=== PATIENT | female | born 1955 | race Caucasian/White ===

== ENCOUNTER 2017-05-10 13:57 | Emergency (ER) | payer BC ==
--- NOTE | 2017-05-10 14:05 | EDM.PDOC ---
ED HPI GENERAL MEDICAL PROBLEM - General Chief Complaint: Neck Problem Stated Complaint: NECK PAIN Time Seen by Provider: 05/10/17 14:15 Source of Information: Reports: Patient History Limitations: Reports: No Limitations - History of Present Illness INITIAL COMMENTS - FREE TEXT/NARRATIVE: 61-year-old female presents to the ED for evaluation of significant cervical neck pain 6 months much worse the last week. She's been seen by various chiropractors over 40 times in total. She gets transient temporary relief. Currently seeing a massage therapist again with very minimal relief. Pain is constant and aggravated by certain movements of the head and neck. Recently she is getting pain rating from the base of her scalp on the right side up to the frontal cortex aggravation of the occipitofrontal nerve. No associated nausea vomiting. No recent falls or trauma. No problems with her neck up until 6 months ago. Onset: Gradual (Over the last 6 months just much worse the last week.) Duration: Week(s):, Chronic Location: Reports: Neck (Right side greater than the left.) Quality: Reports: Ache, Burning, Dull Severity: Moderate (Rates it as 6 or 7 out of 10.) Improves with: Reports: None Worsens with: Reports: Movement Context: Denies: Activity, Exercise (Certain movements), Lifting, Sick Contact, Trauma, Other Associated Symptoms: Denies: No Other Symptoms, Confusion, Chest Pain, Cough, cough w sputum, Diaphoresis, Fever/Chills, Headaches, Loss of Appetite, Malaise , Nausea/Vomiting, Rash, Seizure, Shortness of Breath, Syncope, Weakness Neck Pain Score (Numeric/FACES): 4 - Related Data Allergies Allergy/AdvReac Type Severity Reaction Status Date / Time promethazine [From Phenergan] Allergy Hallucinati Verified 05/10/17 14:20 ons Home Meds: Home Meds Meloxicam 15 mg PO DAILY #14 tablet 05/10/17 [Rx] predniSONE [Deltasone] 20 mg PO ASDIRECTED #18 tablet 05/10/17 [Rx] Social & Family History - Living Situation & Occupation Living situation: Reports: Occupation: Employed ED ROS GENERAL - Review of Systems Review Of Systems: See Below Constitutional: Reports: Fatigue (From not sleeping very well due to neck pain) . Denies: Fever, Chills, Malaise, Weakness HEENT: Reports: No Symptoms Respiratory: Reports: No Symptoms Cardiovascular: Reports: No Symptoms Endocrine: Reports: No Symptoms GI/Abdominal: Reports: No Symptoms : Reports: No Symptoms Musculoskeletal: Reports: Neck Pain. Denies: Shoulder Pain, Arm Pain, Back Pain Skin: Reports: No Symptoms Neurological: Reports: No Symptoms Psychiatric: Reports: No Symptoms ED EXAM, UPPER BACK/NECK PAIN - Physical Exam Exam: See Below Exam Limited By: No Limitations General Appearance: Alert, WD/WN, No Apparent Distress Eye Exam: Bilateral Eye: Normal Inspection Throat/Mouth Exam: Normal Inspection, Normal Lips, Normal Teeth, Normal Oropharynx Head Exam: Atraumatic, Normocephalic Neck Exam: Normal Alignment, Limited Range of Motion, Paraspinous Muscle Tender (Right side lower cervical spine.), Tenderness, Tender Lateral (Worse on the right as compared to the left particularly at C5-C7 range of motion is diminished on right lateral rotation and right flexion.) Nexus Criteria: No: Posterior, Midline Cervical Tenderness, Altered Level of Consciousness, Painful Distraction Injuries Cardiovascular/Respiratory: Regular Rate, Rhythm, No M/R/G, Normal Peripheral Pulses GI/Abdominal: Normal Bowel Sounds, Soft, Non-Tender, No Organomegaly Back Exam: Normal Inspection, Full Range of Motion Extremities: Normal Inspection, Normal Range of Motion, Non-Tender, No Pedal Edema, Normal Capillary Refill Neurologic: adapted physical education aide II-XII nml As Tested, No Motor/Sensory Deficits, Alert, Normal Mood/Affect, Oriented x 3 DTR: 1+: Bicep (R), Bicep (L) Psychiatric: Normal Affect, Normal Mood Skin Exam: Normal Color, Warm/Dry Lymphatic: No Adenopathy Course - Vital Signs Last Recorded V/S: Last Vital Signs Temp 36.5 C 05/10/17 14:09 Pulse 76 05/10/17 16:05 Resp 18 05/10/17 16:05 BP 147/94 H 05/10/17 16:05 Pulse Ox 100 05/10/17 16:05 - Orders/Labs/Meds Orders: Active Orders 24 hr Category Date Time Status Cervical Spine wo Cont [CT] Stat Exams 05/10/17 14:15 Taken - Radiology Interpretation Free Text/Narrative:: 61-year-old female presents the ED for evaluation of severe cervical spine pain for the last 6 months but much worse the last week. No known injuries. Pain is constant and radiates up to the base of her scalp to the frontal cortex in the distribution of the occipitofrontal nerve. She will describe it as a headache. She gets pain along the angle of her mandible as well. Pain is aggravated by certain movements such as rotation of the head and particularly on right lateral rotation and flexion. She denies any radiculopathy into either upper extremity or in her upper mid back. Neck is very tender palpation C5-C6 level on the right side. Aspect degenerative disc disease. Plan CT cervical spine to be done. - Re-Assessments/Exams Free Text/Narrative Re-Assessment/Exam: 05/10/17 15:20 CT cervical spine reveals a grade 1 anterolisthesis of C4 on C5. There is also minimal anterolisthesis of C3 on C4 there are multilevel degenerative disc changes there is mild bilateral neural foraminal stenosis at C5-C6. This correlates with physical exam. I will place her on a course of anti- inflammatory and steroid in hopes of reducing some of this inflammation. If she has had symptoms for over 6 months and this failed to respond to treatment plan she is likely going to need surgery to remedy the situation. I would suggest Dr Dave neurosurgeon at [facility] in [facility]. Departure - Departure Time of Disposition: 15:43 Disposition: Home, Self-Care 01 Condition: Fair Clinical Impression: Cervicalgia - Discharge Information Prescriptions: Meloxicam 15 mg PO DAILY #14 tablet predniSONE [Deltasone] 20 mg PO ASDIRECTED #18 tablet Instructions: Cervical Sprain Referrals: Echo Schmitz [facility] [facility]ST[employer] [Primary Care Provider] - Forms: ED Department Discharge Additional Instructions: Evaluation the emergent today in regards to persistent and gradually worsening neck pain for the last 6 months. There is no evidence of true nerve root entrapment at this time as there is no pain radiating down her arms. However there is significant pain coming from the cervical spine due to degenerative arthritic changes and degenerative disc disease. This is confirmed to be worse at the C5-C6 level on CT scan. Therefore at this time I would suggest an aggressive treatment program with steroid dexamethasone 20 mg with breakfast and supper for 6 days and then 1 tablet in the morning only for another 6 days as well as anti-inflammatory meloxicam 15 mg once daily for the next 14 days to relieve pain and inflammation. The medication to see if it benefits her. If it fails to do so then consultation with neurosurgeon Dr. Dave in [facility] in [facility] would be in order. Also Jenny Schmitz could arrange a aggressive physiotherapy program which may help alleviate some of your pain as well. Please make a follow-up appoint to see Cris in about 14 days time. - My Orders Last 24 Hours: My Active Orders 05/10/17 14:15 Cervical Spine wo Cont [CT] Stat - Assessment/Plan Last 24 Hours: My Active Orders 05/10/17 14:15 Cervical Spine wo Cont [CT] Stat
--- NOTE | 2017-05-13 07:59 | CT ---
CT cervical spine Technique: Multiple axial sections were obtained from above C1 inferiorly to the top of T2. Reconstructed sagittal and coronal images were reviewed. Comparison: No prior cervical spine imaging is available. Findings: Mild spondylolisthesis is seen at C3-C4 and C4-C5. These findings are most likely due to degenerative apophyseal change. Moderate to severe disc space narrowing is noted at C5-C6 with mild posterior osteophytes and mild anterior osteophytes. Mild osteophytes are noted throughout the uncovertebral joints. Mild diffuse degenerative change is noted within the apophyseal joints. No central canal stenosis or neural foraminal stenosis is seen. Posterior skull base is intact. Visualized mastoid sinuses are clear. Middle ear cavities are clear. Degenerative change is incidentally noted between the dens and anterior arch of C1. Impression: 1. Mild diffuse degenerative change as described above. 2. Nothing acute is appreciated on CT study of the cervical spine. Diagnostic code #3 I agree with preliminary report issued by [facility] ([facility] report finalized on 05/10/17, 3:53 PM Central Time)
== END 2017-05-10 16:05 | disposition home or self-care (01) ==
LOC: JD.ED 13:57
DX: M54.2 Cervicalgia (principal); Z88.8 Allergy status to other drugs, medicaments and biological substances; Z79.899 Other long term (current) drug therapy
CPT/HCPCS: 72125; 72125-26; 99284; 99284-25

== ENCOUNTER 2017-09-21 13:16 | Emergency (ER) | payer BC ==
[2017-09-21] MEDS ORDERED: amLODIPine 10 MG Tab PO STA (14:41)
--- NOTE | 2017-09-21 14:42 | EDM.PDOC ---
ED HPI GENERAL MEDICAL PROBLEM - General Chief Complaint: General Stated Complaint: HIGH BLOOD PRESSURE AND SHAKEY Time Seen by Provider: 09/21/17 14:20 Source of Information: Reports: Patient History Limitations: Reports: No Limitations - History of Present Illness INITIAL COMMENTS - FREE TEXT/NARRATIVE: Mary Jane is a 62yo female presents today with concerns of elevated blood pressure. She also had a period of left arm discomfort today, in the AC region and upper arm. She could not contribute this to muscle pain as she has not done any new or strenuous physical activity. She has chronic neck pain, currently seeing her PCP for ongoing concerns with this. She denies CP, SOB, MALIK, palpitations or racing heart beats. She has had a headache and intermittently gets dizzy. She does state that she periodically does get headaches and attributes this to her neck issues. She saw her PCP last week, had labs and evaluation. She is currently taking toprol BID for her b/p but levels continue to be elevated 150's/90's usually. She does smoke a pack or less per day and is trying to cut back. She is active, admits to being a "worry wart" and "worry about everything". KATALINA Felton is her PCP with [facility]. - Related Data Allergies Allergy/AdvReac Type Severity Reaction Status Date / Time promethazine [From Phenergan] Allergy Hallucinati Verified 09/21/17 14:23 ons Home Meds: Home Meds Meloxicam 15 mg PO DAILY #14 tablet 05/10/17 [Rx] Metoprolol Succinate [Toprol XL 50mg] 50 mg PO BID 09/21/17 [History] Rosuvastatin [Crestor] 10 mg PO DAILY 09/21/17 [History] Past Medical History HEENT History: Reports: Impaired Vision Cardiovascular History: Reports: High Cholesterol, Hypertension [employer]ER History: Reports: Musculoskeletal History: Reports: Osteoporosis - Past Surgical History GI Surgical History: Reports: Appendectomy, Cholecystectomy Female Surgical History: Reports: Hysterectomy Social & Family History - Tobacco Use Smoking Status *Q: Current Every Day Smoker Years of Tobacco use: 20 Packs/Tins Daily: 0.2 - Caffeine Use Caffeine Use: Reports: Coffee - Recreational Drug Use Recreational Drug Use: No - Living Situation & Occupation Living situation: Reports: Occupation: Employed ED ROS GENERAL - Review of Systems Review Of Systems: See Below Constitutional: Denies: Fever, Chills, Malaise, Weakness, Fatigue, Diaphoresis HEENT: Reports: No Symptoms Respiratory: Reports: No Symptoms Cardiovascular: Reports: No Symptoms. Denies: Chest Pain, Dyspnea on Exertion, Lightheadedness GI/Abdominal: Reports: No Symptoms. Denies: Abdominal Pain, Nausea : Reports: No Symptoms Musculoskeletal: Reports: Neck Pain (chronic), Arm Pain (left arm discomfort ) Skin: Reports: No Symptoms Neurological: Reports: Dizziness, Headache. Denies: Confusion Psychiatric: Reports: Anxiety ED EXAM, GENERAL - Physical Exam Exam: See Below Exam Limited By: No Limitations General Appearance: Alert, WD/WN, No Apparent Distress Eye Exam: Bilateral Eye: EOMI, PERRL Nose: Normal Inspection Throat/Mouth: Normal Inspection, Normal Teeth, Normal Gums, Normal Oropharynx, Normal Voice, No Airway Compromise Head: Atraumatic, Normocephalic Neck: Normal Inspection, Limited Range of Motion (restricted to end motion left and right). No: Carotid Bruit Respiratory/Chest: No Respiratory Distress, Lungs Clear, Decreased Breath Sounds (bases) Cardiovascular: Normal Peripheral Pulses, Regular Rate, Rhythm, No Edema, No Murmur Peripheral Pulses: 2+: Dorsalis Pedis (L), Dorsalis Pedis (R) GI/Abdominal: Normal Bowel Sounds, Soft, Non-Tender (Female) Exam: Deferred Rectal (Female) Exam: Deferred Extremities: Normal Inspection, No Pedal Edema Neurological: Alert, Oriented, CN II-XII Intact, Normal Cognition, Normal Reflexes, No Motor/Sensory Deficits Psychiatric: Normal Affect, Normal Mood, Anxious Skin Exam: Warm, Dry, Intact EKG INTERPRETATION EKG Date: 09/21/17 Time: 14:43 Rhythm: NSR Rate (Beats/Min): 65 Course - Vital Signs Last Recorded V/S: Last Vital Signs Temp 97.8 F 09/21/17 13:39 Pulse 72 09/21/17 13:39 Resp 16 09/21/17 13:39 BP 172/84 H 09/21/17 14:58 Pulse Ox 93 L 09/21/17 13:39 - Orders/Labs/Meds Orders: Active Orders 24 hr Category Date Time Status EKG Documentation Completion [RC] STAT Care 09/21/17 14:40 Active Labs: Laboratory Tests 09/21/17 09/21/17 Range/Units 14:48 14:48 WBC 8.67 (3.98-10.04) K/mm3 RBC 4.30 (3.98-5.22) M/mm3 Hgb 13.5 (11.2-15.7) gm/L Hct 39.4 (34.1-44.9) % MCV 91.6 (79.4-94.8) fl MCH 31.4 (25.6-32.2) pg MCHC 34.3 (32.2-35.5) g/dl RDW Std Deviation 44.7 (36.4-46.3) fL Plt Count 182 (182-369) K/mm3 MPV 10.0 (9.4-12.3) fl Neut % (Auto) 76.3 H (34.0-71.1) % Lymph % (Auto) 19.1 L (19.3-51.7) % Gordon % (Auto) 4.0 L (4.7-12.5) % Eos % (Auto) 0.3 L (0.7-5.8) Baso % (Auto) 0.2 (0.1-1.2) % Neut # (Auto) 6.60 H (1.56-6.13) K/mm3 Lymph # (Auto) 1.66 (1.18-3.74) K/mm3 Gordon # (Auto) 0.35 (0.24-0.36) K/mm3 Eos # (Auto) 0.03 L (0.04-0.36) K/mm3 Baso # (Auto) 0.02 (0.01-0.08) K/mm3 Sodium 142 (136-145) mEq/L Potassium 3.7 (3.5-5.1) mEq/L Chloride 107 (98-107) mEq/L Carbon Dioxide 25 (21-32) mEq/L Anion Gap 13.7 (5-15) BUN 6 L (7-18) mg/dL Creatinine 0.7 (0.55-1.02) mg/dL Est Cr Clr Drug Dosing 62.07 mL/min Estimated GFR (MDRD) > 60 (>60) mL/min BUN/Creatinine Ratio 8.6 L (14-18) Glucose 112 (80-115) mg/dL Calcium 9.2 (8.5-10.1) mg/dL Total Bilirubin 0.4 (0.2-1.0) mg/dL AST 8 L (15-37) U/L ALT 22 (14-59) U/L Alkaline Phosphatase 31 L (46-116) U/L Troponin I < 0.017 (0.00-0.056) ng/mL Total Protein 7.0 (6.4-8.2) g/dl Albumin 4.1 (3.4-5.0) g/dl Globulin 2.9 gm/dL Albumin/Globulin Ratio 1.4 (1-2) Meds: Medications Discontinued Medications Generic Name Dose Route Start Last Admin Trade Name Freq PRN Reason Stop Dose Admin Amlodipine Besylate 10 mg 09/21/17 14:41 09/21/17 14:58 Norvasc PO 09/21/17 14:42 10 mg NOW STA Administration - Radiology Interpretation CT Results Date: 09/21/17 (head CT returned negative or unremarkable) - Re-Assessments/Exams Free Text/Narrative Re-Assessment/Exam: 09/21/17 15:50 Long discussion with patient re: normal testing, exam. Recommend stop meloxicam for one week and check b/p daily- this may be contributing. Use tylenol PRN. Amlodipine was given in ED, I will defer further antihypertensive management to PCP at this time but would recommend addition of b/p medication. Discussed arthritis in neck, she is going to f/up with PCP next week and will discuss this at that time. Recommended smoking cessation. Recommend stress management. Departure - Departure Time of Disposition: 15:55 Disposition: Home, Self-Care 01 Condition: Good Clinical Impression: Hypertension Qualifiers: Hypertension type: unspecified Qualified Code(s): I10 - Essential (primary) hypertension - Discharge Information Instructions: Heart Disease Prevention, Hypertension, [id number], Managing Your Hypertension Referrals: Echo Schmitz [employer] VENDOR [Primary Care Provider] - Forms: ED Department Discharge Additional Instructions: Evaluation today is normal or negative; no heart attack. All other labs are normal. Head CT is negative for stroke or other concerns. Continue to check blood pressure once daily and record. Push fluids, avoid salt/sodium. Follow up Friday morning or as soon as possible with PCP, KATALINA Felton Return to ER if worsening of symptoms or other ?'s or concerns. - My Orders Last 24 Hours: My Active Orders 09/21/17 14:40 EKG Documentation Completion [RC] STAT - Assessment/Plan Last 24 Hours: My Active Orders 09/21/17 14:40 EKG Documentation Completion [RC] STAT
--- NOTE | 2017-09-21 15:24 | CT ---
Head CT Technique: Multiple axial sections were obtained through the brain. Intravenous contrast was not utilized. Comparison: No prior intracranial imaging. Findings: Ventricles along the basal cisterns and sulci over the convexities are mildly prominent. Minimal diminished density is noted within the periventricular white matter compatible with small vessel ischemic demyelination change. No other abnormal parenchymal densities are seen. No evidence of intracranial hemorrhage. No midline shift or mass effect is seen. Mild mucosal thickening is noted within the left side of the sphenoid sinus. No acute calvarial abnormality is seen. Impression: 1. Incidental findings. Nothing acute is appreciated on noncontrast head CT exam. Diagnostic code #2
== END 2017-09-21 15:50 | disposition home or self-care (01) ==
LOC: JD.ED 13:16
DX: I10 Essential (primary) hypertension (principal); F17.210 Nicotine dependence, cigarettes, uncomplicated; E78.00 Pure hypercholesterolemia, unspecified; Z90.49 Acquired absence of other specified parts of digestive tract; Z79.899 Other long term (current) drug therapy
CPT/HCPCS: 36415; 70450; 80053; 84484; 85025; 93005; 99284; A9270; 99283

== ENCOUNTER 2017-09-23 11:30 | Emergency (ER) | payer BC ==
--- NOTE | 2017-09-23 13:09 | EDM.PDOC ---
ED HPI GENERAL MEDICAL PROBLEM - General Chief Complaint: Cardiovascular Problem Stated Complaint: BLOOD PRESSURE ELEVATED AGAIN Time Seen by Provider: 09/23/17 12:43 Source of Information: Reports: Patient History Limitations: Reports: No Limitations - History of Present Illness INITIAL COMMENTS - FREE TEXT/NARRATIVE: Patient is a 62-year-old female with a history of hypertension and hypercholesteremia presents to the ED complaining of elevated blood pressure, intermittent dizziness, and muscle ache to the left bicep. Patient states at work today she was sitting at her desk when he symptoms came on. She was not performing any strenuous activities. Denies any increased stress. Patient states she went home took her blood pressure about 10:15 it was 180/95. This prompted evaluation in the ED. Upon admission to the ED all patient's discomforts have resolved. This includes a funny feeling to her left arm bicep region. She was evaluated this past Friday with similar symptoms had a CT of the head, EKG, and labs obtained with no acute findings. She is scheduled to see her primary care provider for further management of BP. She's been checking her blood pressure twice daily. She states when symptoms came about her heart rate was beating faster than normal and had a pounding sensation. Patient did drive herself to the ED with complete resolution. She doesn't have chronic neck discomfort related to degenerative disc disease. She has had MRI of the neck last week that did not reveal any significant findings. She was taking meloxicam prior to examination on September 21, 2017. She was seen in the ED for similar symptoms. Of note since starting the Toprol 50 mg twice a day patient states dizziness has somewhat worsened. Upon admission to the ED patient's blood pressure is 169/81. Patient continues to smoke 1/2 ppd. Denies any alcohol and/or recreational drug use. Current medications include Toprol-XL and Crestor. 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: Musculoskeletal History: Reports: Neck Pain, Chronic, Osteoporosis - Past Surgical History GI Surgical History: Reports: Appendectomy, Cholecystectomy Female Surgical History: Reports: Hysterectomy Social & Family History - Tobacco Use Smoking Status *Q: Unknown Ever Smoked - Caffeine Use Caffeine Use: Reports: Coffee - Living Situation & Occupation Living situation: Reports: Occupation: Employed ED ROS GENERAL - Review of Systems Review Of Systems: See Below Constitutional: Reports: No Symptoms HEENT: Reports: No Symptoms Respiratory: Reports: No Symptoms Cardiovascular: Denies: Chest Pain, Lightheadedness, Palpitations, PND GI/Abdominal: Reports: No Symptoms Musculoskeletal: Reports: Neck Pain (chronic, unchanged), Arm Pain (left arm pain to the elbow, intermittent, last only for a short period of time. Suspected cause is her cervical spine. ) Skin: Reports: No Symptoms Neurological: Reports: No Symptoms Psychiatric: Reports: Anxiety (anxious at times.) ED EXAM, GENERAL - Physical Exam Exam: See Below Exam Limited By: No Limitations General Appearance: Alert, WD/WN, No Apparent Distress Eye Exam: Bilateral Eye: Normal Inspection, Nystagmus (None noted), PERRL Ears: Hearing Grossly Normal Nose: Normal Inspection Throat/Mouth: Normal Inspection, Normal Oropharynx, Normal Voice, No Airway Compromise Head: Atraumatic, Normocephalic Neck: Normal Inspection, Supple, Full Range of Motion, Tender Lateral Respiratory/Chest: No Respiratory Distress, Lungs Clear, Normal Breath Sounds, No Accessory Muscle Use, Chest Non-Tender Cardiovascular: Normal Peripheral Pulses, Regular Rate, Rhythm, No Murmur Peripheral Pulses: 4+: Radial (L), Radial (R) GI/Abdominal: Normal Bowel Sounds, Soft, Non-Tender, No Organomegaly, No Distention Back Exam: Normal Inspection. No: CVA Tenderness (L), CVA Tenderness (R) Extremities: Normal Inspection, Normal Range of Motion, Non-Tender, No Pedal Edema, Normal Capillary Refill Neurological: Alert, Oriented, CN II-XII Intact, Normal Cognition, No Motor/ Sensory Deficits Psychiatric: Normal Affect, Normal Mood Skin Exam: Warm, Dry, Intact, Normal Color, No Rash Course - Vital Signs Last Recorded V/S: Last Vital Signs Temp 99.0 F 09/23/17 12:04 Pulse 74 09/23/17 12:04 Resp 18 09/23/17 12:04 BP 169/81 H 09/23/17 12:04 Pulse Ox 99 09/23/17 12:04 - Orders/Labs/Meds Labs: Laboratory Tests 09/23/17 09/23/17 09/23/17 Range/Units 13:36 13:36 13:36 WBC 7.49 (3.98-10.04) K/mm3 RBC 4.19 (3.98-5.22) M/mm3 Hgb 13.3 (11.2-15.7) gm/L Hct 38.6 (34.1-44.9) % MCV 92.1 (79.4-94.8) fl MCH 31.7 (25.6-32.2) pg MCHC 34.5 (32.2-35.5) g/dl RDW Std Deviation 44.5 (36.4-46.3) fL Plt Count 192 (182-369) K/mm3 MPV 10.4 (9.4-12.3) fl Neutrophils % (Manual) 79 H (40-60) % Band Neutrophils % 0 (0-10) % Lymphocytes % (Manual) 17 L (20-40) % Atypical Lymphs % 0 % Monocytes % (Manual) 3 (2-10) % Eosinophils % (Manual) 1 (0.7-5.8) % Basophils % (Manual) 0 L (0.1-1.2) Platelet Estimate Adequate Plt Morphology Comment Normal RBC Morph Comment Normal Sodium 143 (136-145) mEq/L Potassium 3.6 (3.5-5.1) mEq/L Chloride 107 (98-107) mEq/L Carbon Dioxide 28 (21-32) mEq/L Anion Gap 11.6 (5-15) BUN 8 (7-18) mg/dL Creatinine 0.7 (0.55-1.02) mg/dL Est Cr Clr Drug Dosing 62.07 mL/min Estimated GFR (MDRD) > 60 (>60) mL/min BUN/Creatinine Ratio 11.4 L (14-18) Glucose 108 (80-115) mg/dL Calcium 9.0 (8.5-10.1) mg/dL Total Bilirubin 0.4 (0.2-1.0) mg/dL AST 21 (15-37) U/L ALT 21 (14-59) U/L Alkaline Phosphatase 27 L (46-116) U/L Troponin I < 0.017 (0.00-0.056) ng/mL Total Protein 7.0 (6.4-8.2) g/dl Albumin 4.1 (3.4-5.0) g/dl Globulin 2.9 gm/dL Albumin/Globulin Ratio 1.4 (1-2) TSH 3rd Generation 0.413 (0.358-3.74) uIU/mL - Re-Assessments/Exams Free Text/Narrative Re-Assessment/Exam: Patients symptoms have completely resolved with admission to the E.D. Patient believes symptoms maybe related to anxiety that is untreated. Discomfort came on while working at her desk. She felt her heart was pounding with onset. She has degenerative disc disease to her cervical spine and states some of the pain to the arm maybe related to her neck. She recently discontinued meloxicam. states neck discomfort is unchanged. EKG sinus bradycardia with no acute ST changes noted. Will order TSH, cbc, c14, and EKG. 1427 Lab results are not present. 09/23/17 15:11 Labs reviewed: CBC and chemistry panel essentially normal. TSH 0.413. Troponin results are not available at this time. Troponin was not entered in error. 09/23/17 15:47 Troponin was negative. Patient has no symptoms as we speak. She is wishing to be discharged home. Discharge instructions as documented. Departure - Departure Time of Disposition: 15:47 Disposition: Home, Self-Care 01 Condition: Good Clinical Impression: Anxiety, Left upper arm pain HTN (hypertension) Qualifiers: Hypertension type: unspecified Qualified Code(s): I10 - Essential (primary) hypertension Instructions: Generalized Anxiety Disorder, Adult, How to Take Your Blood Pressure, Hypertension, [id number], Preventing Hypertension, Pain Without a Known Cause, Managing Your Hypertension Referrals: Echo Schmitz PROMOTIONS OFFICER [Primary Care Provider] - Forms: ED Department Discharge Additional Instructions: As discussed all labs were essentially normal. EKG did not reveal any significant changes from previous EKG. Suspect cause of elevated BP is due to excessive worrying as suggested by .Suggest checking bp once daily with log kept. Take at same time, same arm, and same method everyday. Record BP results. Bring blood pressure machine and log with you to next appt to calibrate with in office BP machine. I suggest speaking with PCP treatment for anxiety. Return to the E.D. for any new or worsening symptoms as discussed.
== END 2017-09-23 15:56 | disposition home or self-care (01) ==
LOC: JD.ED 11:30
DX: I10 Essential (primary) hypertension (principal); F41.9 Anxiety disorder, unspecified; E78.00 Pure hypercholesterolemia, unspecified; Z88.8 Allergy status to other drugs, medicaments and biological substances; Z90.49 Acquired absence of other specified parts of digestive tract
CPT/HCPCS: 36415; 80053; 84443; 84484; 85025; 93005; 99284-25

== ENCOUNTER 2017-09-30 11:39 | Emergency (ER) | payer BC ==
[2017-09-30] MEDS ORDERED: Metoprolol Tartrate 50 MG Tab PO ONE (12:41)
--- NOTE | 2017-09-30 14:43 | CR ---
Chest: Two views of the chest were obtained. Comparison: Prior chest x-ray of 11/07/11 Heart size is slightly enlarged. Tortuous thoracic aorta is seen. Nodular density is noted within the right upper chest which appears similar to prior chest x-ray. Lungs show no acute parenchymal densities. Diaphragms are flattened on the lateral view compatible with emphysematous change. Bony structures show slight degenerative change scattered within the spine with minimal scoliosis. Impression: 1. Incidental findings. Nothing acute is seen on two-view chest x-ray. Diagnostic code #2
--- NOTE | 2017-09-30 14:57 | EDM.PDOC ---
ED HPI GENERAL MEDICAL PROBLEM - General Chief Complaint: Cardiovascular Problem Stated Complaint: HIGH BP Time Seen by Provider: 09/30/17 12:28 Source of Information: Reports: Patient History Limitations: Reports: No Limitations - History of Present Illness INITIAL COMMENTS - FREE TEXT/NARRATIVE: The patient presents with high blood pressure. This is her 3rd visit to the ER in the past couple of weeks. She has not been feeling well. She has no energy. She has had some left arm pain. She is anxious and her blood pressure is elevated. She is on lisinopril 10mg and metoprolol 50mg BID. She say Echo Schmitz twice. Today her BP was elevated again. She has no fever, chills, chest pain, abdominal pain, nausea or vomiting. She did have some shortness of breath at times and just a slight cough. Onset: Gradual Duration: Week(s): Improves with: Reports: None Worsens with: Reports: None Associated Symptoms: Reports: No Other Symptoms Left Upper Arm Pain Score (Numeric/FACES): 2 - Related Data Allergies Allergy/AdvReac Type Severity Reaction Status Date / Time promethazine [From Phenergan] Allergy Hallucinati Verified 09/30/17 11:50 ons Home Meds: Home Meds Metoprolol Succinate [Toprol XL 50mg] 50 mg PO BID 09/21/17 [History] Rosuvastatin [Crestor] 10 mg PO DAILY 09/21/17 [History] Lisinopril 10 mg PO BID 09/30/17 [History] Past Medical History HEENT History: Reports: Impaired Vision Cardiovascular History: Reports: High Cholesterol, 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: Musculoskeletal History: Reports: Neck Pain, Chronic, Osteoporosis - Past Surgical History GI Surgical History: Reports: Appendectomy, Cholecystectomy Female Surgical History: Reports: Hysterectomy Social & Family History - Tobacco Use Smoking Status *Q: Current Every Day Smoker Years of Tobacco use: 20 Packs/Tins Daily: 0.2 - Caffeine Use Caffeine Use: Reports: Coffee - Recreational Drug Use Recreational Drug Use: No - Living Situation & Occupation Living situation: Reports: Occupation: Employed ED ROS GENERAL - Review of Systems Review Of Systems: See Below Constitutional: Reports: Malaise HEENT: Reports: No Symptoms Respiratory: Reports: No Symptoms Cardiovascular: Reports: No Symptoms Endocrine: Reports: No Symptoms GI/Abdominal: Reports: No Symptoms : Reports: No Symptoms Musculoskeletal: Reports: No Symptoms Skin: Reports: No Symptoms ED EXAM, GENERAL - Physical Exam Exam: See Below Exam Limited By: No Limitations General Appearance: Alert, No Apparent Distress Ears: Normal External Exam Nose: Normal Inspection Head: Atraumatic, Normocephalic Neck: Normal Inspection Respiratory/Chest: No Respiratory Distress, Lungs Clear, Normal Breath Sounds Cardiovascular: Regular Rate, Rhythm, No Edema, No Murmur GI/Abdominal: Soft, Non-Tender, No Organomegaly, No Mass Back Exam: Normal Inspection Extremities: Normal Inspection Course - Vital Signs Last Recorded V/S: Last Vital Signs Temp 98.1 F 09/30/17 11:44 Pulse 65 09/30/17 12:53 Resp 18 09/30/17 11:44 BP 161/76 H 09/30/17 12:53 Pulse Ox 99 09/30/17 11:44 - Orders/Labs/Meds Meds: Medications Discontinued Medications Generic Name Dose Route Start Last Admin Trade Name Freq PRN Reason Stop Dose Admin Metoprolol Tartrate 50 mg 09/30/17 12:41 09/30/17 12:53 Lopressor PO 09/30/17 12:42 50 mg ONETIME ONE Administration - Re-Assessments/Exams Free Text/Narrative Re-Assessment/Exam: 09/30/17 14:54 I gave her some metoprolol here and get a CXR. Her CXR looks good. Her blood pressure is better. I will discharge her home. I will not make any changes to her blood pressure today. Departure - Departure Time of Disposition: 14:55 Disposition: Home, Self-Care 01 Condition: Good Clinical Impression: Hypertension Qualifiers: Hypertension type: essential hypertension Qualified Code(s): I10 - Essential ( primary) hypertension Referrals: Echo Schmitz DRUG DISCOVERY INFORMATICS SPECIALIST [Primary Care Provider] - 1 Week Additional Instructions: Continue taking your medication as prescribed until you see your doctor. Alternate taking your blood pressure to different arms. Do not take it as much. Please return if you are worse.
== END 2017-09-30 15:05 | disposition home or self-care (01) ==
LOC: JD.ED 11:39
DX: I10 Essential (primary) hypertension (principal); E78.00 Pure hypercholesterolemia, unspecified; F17.210 Nicotine dependence, cigarettes, uncomplicated; Z88.8 Allergy status to other drugs, medicaments and biological substances; Z79.899 Other long term (current) drug therapy; Z90.710 Acquired absence of both cervix and uterus
CPT/HCPCS: 71046; 99283; A9270

== ENCOUNTER 2018-07-21 07:59 | Emergency (ER) | payer BC ==
[2018-07-21] MEDS ORDERED: Dextrose 5%-0.9% NaCl 1,000 ML IV SCH (08:45)
[2018-07-21] MEDS ORDERED: Lidocaine 1% 10 ML MDV INJECT ONE (08:47)
--- NOTE | 2018-07-21 08:51 | EDM.PDOC ---
ED HPI GENERAL MEDICAL PROBLEM <Fili Pineda - Last Filed: 07/21/18 10:55> - General Source of Information: Reports: Patient, Family (spouse) History Limitations: Reports: No Limitations - History of Present Illness Onset: Sudden Onset Date: 07/20/18 (A syncopal event at home yesterday morning and again this morning 2.) Duration: Day(s): Location: Reports: Face (Contusion to the right temporal scalp with a laceration. It's occurred yesterday but reopened the wound today. She had a covered with a bandage) Quality: Reports: Other (Only pain is at the site of laceration.) Severity: Moderate Improves with: Reports: Other (Spontaneous improvement.) Worsens with: Reports: None Context: Reports: Other (Both syncopal events occurred while she had just gotten up for the day. Indicating orthostasis.). Denies: Activity, Exercise, Lifting, Sick Contact, Trauma Associated Symptoms: Reports: Cough, cough w sputum (Chronic cough due to cigarette smoking), Loss of Appetite, Malaise, Weakness (Generalized mild weakness). Denies: Confusion, Chest Pain, Diaphoresis, Fever/Chills ( occasional sputum production), Headaches, Nausea/Vomiting, Rash, Seizure, Shortness of Breath, Syncope Treatments DIRECTOR PEDIATRIC: Reports: Other (see below) (Has taken no medications other than her usual meds.) <Sincere Cho - Last Filed: 07/21/18 12:35> - General Chief Complaint: Syncope Stated Complaint: SYNCOPE/LOW BP Time Seen by Provider: 07/21/18 08:44 - History of Present Illness INITIAL COMMENTS - FREE TEXT/NARRATIVE: 63-year-old female presents the ED in the accompaniment of her . History suggests that she suffered a syncopal event yesterday morning and fell in the bathroom striking her head with a resultant 1 cm laceration to the right temporal scalp. When her helped her up she once again fainted on the way to the bedroom. She states the rest of the day she felt pretty well. She reports that she has been ill with flulike illness for the weekend and hasn't ate or drank all that well for the last 2-3 days. All of her blood pressure medications yesterday including last night's meds which includes Toprol 50 mg. She states her weight has been fairly stable at 125 pounds. She was 137 pounds a year ago. Blood pressure at the clinic the other day was 120/70. This morning she got up from bed and decided to go travel downstairs to the bathroom on the main floor. found her to make sure she would be okay. She seemed to be and the next thing her heard was the kitchen chair follow over and he found his unresponsive on the floor. She came around within a minute or so and she makes perfect sense with no sign of seizure activity. She denies getting hurt badly this morning but she did reopen her right temporal laceration which he had a bandage over. At present she is alert oriented and able to provide a full useful history. Denies any black tarry stools or vomiting blood. Illness did not include any nausea vomiting just poor oral intake for the last 2-3 days. She believes she is running a low-grade fever. Has minimal cough. She still smokes a half pack per day. This morning when her helped her up and help carry her neck towards the bedroom she passed out again. Again for only a short period of time the pressure checks here revealed it to be low 103 207 systolically but no significant orthostatic changes appreciated. 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: Musculoskeletal History: Reports: Neck Pain, Chronic, Osteoporosis - Past Surgical History GI Surgical History: Reports: Appendectomy, Cholecystectomy Female Surgical History: Reports: Hysterectomy <Sincere Cho - Last Filed: 07/21/18 12:35> Social & Family History - Tobacco Use Smoking Status *Q: Current Every Day Smoker Tobacco Use Within Last Twelve Months: Cigarettes - Caffeine Use Caffeine Use: Reports: Coffee - Living Situation & Occupation Living situation: Reports: Occupation: Employed <TammieSincere palma Anant - Last Filed: 07/21/18 12:35> ED ROS GENERAL - Review of Systems Review Of Systems: See Below (Bone a half pack per day) Constitutional: Reports: Malaise, Weakness, Fatigue, Decreased Appetite (Pap smear weight loss from 137-125 over the last year. East appetite with a flulike illness that occurred over the weekend.), Weight Loss. Denies: Fever, Chills HEENT: Reports: Glasses Respiratory: Reports: Shortness of Breath, Wheezing, Cough (Occasional cough), Sputum (Occasional sputum production). Denies: Pleuritic Chest Pain ( Occasional wheezing) Cardiovascular: Reports: Blood Pressure Problem, Dyspnea on Exertion (Sometimes) , Lightheadedness, Syncope (Lightheadedness with syncope 2 the last 2 days syncope collapse times once yesterday morning and again this morning). Denies: Chest Pain, Claudication (Is on medication for hypertension), Orthopnea Endocrine: Reports: Fatigue GI/Abdominal: Reports: No Symptoms. Denies: Black Stool, Diarrhea, Decreased Appetite, Melena : Reports: No Symptoms Musculoskeletal: Reports: Shoulder Pain, Joint Pain (Knees hips and shoulders at times neck at times) Skin: Reports: No Symptoms Neurological: Reports: Dizziness (Dizziness with syncope) Psychiatric: Reports: Anxiety (On medication for anxiety at times) Hematologic/Lymphatic: Reports: No Symptoms Immunologic: Reports: No Symptoms <TammieSincere Anant - Last Filed: 07/21/18 12:35> - Physical Exam Exam: See Below Exam Limited By: No Limitations General Appearance: Alert, WD/WN, No Apparent Distress, Other (Slightly palate in color.) Eye Exam: Bilateral Eye: Normal Inspection, PERRL Throat/Mouth: Other Head Exam: Atraumatic (Tongue is mildly dry and coated), Normocephalic, Facial Lacerations (She has a 1 cm laceration right temporal scalp just above the eyebrow) Neck: Normal Inspection ( that is open with a clot within it. It will require laceration repair), Supple, Non-Tender, Full Range of Motion. No: Lymphadenopathy (L), Lymphadenopathy (R) Respiratory/Chest: Respiratory Distress (Mild tachypnea at rest 21/m with O2 sats of 98%), Rales Cardiovascular: Normal Peripheral Pulses (Few crackles at the left base that seem to clear with coughing.), Regular Rate, Rhythm, No Edema, No Gallop, No Murmur, No Rub GI/Abdominal: Normal Bowel Sounds, Soft, Non-Tender, No Organomegaly, No Abnormal Bruit, No Mass, Pelvis Stable. No: Guarding, Rigid, Rebound Neuro Exam (Abbreviated): Alert, Oriented, CN II-XII Intact, Normal Cognition, Normal Gait, Other (Orthostatic BPs are normal at this time) Back Exam: Normal Inspection, Full Range of Motion, Other Extremities: Normal Inspection (No abrasions or contusions or injuries from syncope this morning), Normal Range of Motion, Non-Tender, No Pedal Edema Psychiatric: Normal Affect, Normal Mood Skin Exam: Warm, Dry, Intact, No Rash (Slight pallor.), Pallor <Sincere Cho - Last Filed: 07/21/18 12:35> ED PROCEDURES - Laceration/Wound Repair Right Other Lac/wound length in cm: 1.5 (cm) Appearance: Subcutaneous, Linear, Clean, Other (full thickness, clean margins, linear laceration) Distal NVT: Neuro & Vascular Intact Anesthetic Type: Local Local Anesthesia - Lidocaine (Xylocaine): 1% Plain Local Anesthetic Volume: 3cc Skin Prep: Saline Saline irrigation (cc's): 40 (mL) Exploration/Debridement/Repair: Wound Explored, Explored to Base, No Foreign Material Found Closed with: Sutures Suture Size: 4-0 # of Sutures: 2 Suture Type: Nylon Tetanus Status Addressed: Other (provided today) Complications: No <Fili Pineda - Last Filed: 07/21/18 10:55> <Sincere Cho - Last Filed: 07/21/18 12:35> - Laceration/Wound Repair Right Other Progress/Comments: Wound was irrigated and prepped using sterile technique. 3CC of lidocaine was infiltrated within the wound margins and local anesthesia achieved. The wound was explored to base without any appreciable foreign material. Wound margins were tidy and approximated. Two 4.0 ehtylon sutures were used to close the wound. Hemostasis was achieved. There were no observed complications. Pt was educated on suture care and removal in approximately 5-7 days and appropriate dressing was applied per RN. (Fili Pineda) Course <Fili Pineda - Last Filed: 07/21/18 10:55> <Sincere Cho - Last Filed: 07/21/18 12:35> - Vital Signs Last Recorded V/S: Last Vital Signs Temp 36.3 C 07/21/18 08:25 Pulse 70 07/21/18 08:25 Resp 21 H 07/21/18 08:25 BP 115/65 07/21/18 08:25 Pulse Ox 98 07/21/18 08:25 Orthostatic Blood Pressure [ 101/63 Standing] Orthostatic Blood Pressure [ 107/58 Sitting] Orthostatic Blood Pressure [ 103/61 Supine] - Orders/Labs/Meds Orders: Active Orders 24 hr Category Date Time Status EKG Documentation Completion [RC] STAT Care 07/21/18 08:45 Active Dextrose 5%-0.9% NaCl [Dextrose 5%-Normal Saline] 1,000 Med 07/21/18 08:45 Active ml IV ASDIRECTED Medication Orders Dextrose/Sodium Chloride (Dextrose 5%-Normal Saline) 1,000 mls @ 999 mls/hr IV ASDIRECTED SHERWIN Last Admin: 07/21/18 09:04 Dose: 999 mls/hr Labs: Laboratory Tests 07/21/18 07/21/18 07/21/18 Range/Units 09:00 09:00 09:00 WBC 3.57 L (3.98-10.04) K/mm3 RBC 4.11 (3.98-5.22) M/mm3 Hgb 12.6 (11.2-15.7) gm/L Hct 37.6 (34.1-44.9) % MCV 91.5 (79.4-94.8) fl MCH 30.7 (25.6-32.2) pg MCHC 33.5 (32.2-35.5) g/dl RDW Std Deviation 46.1 (36.4-46.3) fL Plt Count 126 L (182-369) K/mm3 MPV 11.0 (9.4-12.3) fl Neutrophils % (Manual) 58 (40-60) % Band Neutrophils % 0 (0-10) % Lymphocytes % (Manual) 23 (20-40) % Atypical Lymphs % 0 % Monocytes % (Manual) 19 H (2-10) % Eosinophils % (Manual) 0 L (0.7-5.8) % Basophils % (Manual) 0 L (0.1-1.2) Platelet Estimate Decreased RBC Morph Comment Normal Sodium 137 (136-145) mEq/L Potassium 3.2 L (3.5-5.1) mEq/L Chloride 101 (98-107) mEq/L Carbon Dioxide 26 (21-32) mEq/L Anion Gap 13.2 (5-15) BUN 11 (7-18) mg/dL Creatinine 0.7 (0.55-1.02) mg/dL Est Cr Clr Drug Dosing 61.27 mL/min Estimated GFR (MDRD) > 60 (>60) mL/min BUN/Creatinine Ratio 15.7 (14-18) Glucose 106 (80-115) mg/dL Calcium 8.4 L (8.5-10.1) mg/dL Magnesium 1.8 (1.8-2.4) mg/dl Total Bilirubin 0.2 (0.2-1.0) mg/dL AST 23 (15-37) U/L ALT 28 (14-59) U/L Alkaline Phosphatase 29 L (46-116) U/L Troponin I < 0.017 (0.00-0.056) ng/mL C-Reactive Protein 2.6 H* (<1.0) mg/dL NT-Pro-B Natriuret Pep 640 H (0-125) pg/mL Total Protein 6.5 (6.4-8.2) g/dl Albumin 3.5 (3.4-5.0) g/dl Globulin 3.0 gm/dL Albumin/Globulin Ratio 1.2 (1-2) Meds: Medications Generic Name Dose Route Start Last Admin Trade Name Freq PRN Reason Stop Dose Admin Dextrose/Sodium Chloride 1,000 mls @ 999 mls/hr 07/21/18 08:45 07/21/18 09:04 Dextrose 5%-Normal Saline IV 999 mls/hr ASDIRECTED SHERWIN Administration Discontinued Medications Generic Name Dose Route Start Last Admin Trade Name Freq PRN Reason Stop Dose Admin Lidocaine HCl 10 ml 07/21/18 08:47 07/21/18 09:04 Xylocaine 1% INJECT 07/21/18 08:48 10 ml ONETIME ONE Administration - Radiology Interpretation Free Text/Narrative:: 63-year-old female presents to the ED after having a syncopal episode yesterday morning at home shortly after getting up where she fell in the bathroom and suffered a laceration to her right temporal frontal scalp. She has placed a bandage over this. She states she had been feeling well all weekend and spent most the weekend in bed due to flulike illness mild symptoms suggestive of influenza. She does not have a severe cough did have a headache lost her appetite did ache all over. Did have a low-grade fever with some chills. She does take her blood pressure medication and to take it yesterday. This includes a Toprol XL 50 at bedtime. This morning she got up admitted downstairs to the bathroom but as she made her way back into the kitchen she collapsed in the kitchen and her found her on the floor. Once again she had passed out and she was out for 30 seconds to a minute. He help pick her up and was going to help her back to the bedroom when she again fainted again. Therefore he decided to bring her to the hospital. Patient's weight is change from 1:30 7/ over the last year. Should the clinic was 120/80 when she last check. Today it's in the 103-107 range and is not significantly orthostatic. Coarse her heart rate is block because she is on beta blockers. I overall impression is that she is volume depleted. Us is being aggravated by her blood pressure medications. Will have influenza screen done a chest x-ray and a urinalysis. Cardiac markers ECG and a chest x-ray. IV will be D5 normal saline at open. (Sincere Cho) - Re-Assessments/Exams Free Text/Narrative Re-Assessment/Exam: 07/21/18 11:14: Chest x-ray done portably shows hyperinflated lung tafoya compatible with some emphysematous changes. There is no pulmonary infiltrates to suggest pneumonia. Cardiac silhouette is normal. 07/21/18 12:15 Labs reveal a low white count at 3.57. Differential is 50% neutrophils no bands cells and 23% lymphocytes hemoglobin is 12.6 with hematocrit of 37.6. Platelet count 126,000. Sodium 137 with potassium slightly low at 3.2. Chloride 11 with a bicarbonate of 26. And a gap is 13.2 BUN is 11 with a creatinine of 0.7. GFR is greater than 60. Glucose is 106 with a calcium of 8.4. Magnesium is normal at 1.8. Bilirubin 0.2 liver function otherwise normal C-reactive protein is elevated at 2.6 BNP is mildly elevated at 640. Influenza screen is positive for the type A virus. Therefore her recurrent syncope is due to orthostatic hypotension aggravated by Toprol tablet at bedtime. Blood pressures have been running very low while in the ED as low as 86 systolic 93 systolic and 103 systolic. Ports a 12 pound weight loss over the last year and I'm suspicious for blood pressure is running low most of the time and it's likely that she doesn't need Toprol anymore for blood pressure control. I've advised therefore to discontinue this medication abruptly as she has no underlying heart condition. Will stay on lisinopril for blood pressure control and follow up in the clinic in 2 weeks' time for blood pressure review. The vasculature to try and check her blood pressure a few times outside of the clinic such as at [facility] or the pharmacy write down the numbers. In the meantime she will maintain hydration with Gatorade/Powerade and start to eat again. She is hopeful she can hit [place] before leaving town. Be off work until Friday this week as it appears that her symptoms of influenza A started last Friday. (Sincere Cho) Departure <Fili Pineda - Last Filed: 07/21/18 10:55> - Departure Time of Disposition: 12:30 Condition: Fair - Discharge Information *PRESCRIPTION DRUG MONITORING PROGRAM REVIEWED*: Not Applicable *COPY OF PRESCRIPTION DRUG MONITORING REPORT IN PATIENT VIBHA: Not Applicable <Sincere Cho - Last Filed: 07/21/18 12:35> - Departure Disposition: Home, Self-Care 01 Clinical Impression: Syncope and collapse, Orthostatic hypotension, Influenza A, Volume depletion - Discharge Information Instructions: Influenza, Adult, Orthostatic Hypotension Referrals: Nadeen Mckeon NP [Primary Care Provider] - Forms: ED Department Discharge, ED Return to Work/School Form Additional Instructions: Evaluation the emergency room today in regards to syncope which means fainting and collapse at home both yesterday morning and today. Evaluation in the emergency room carried out reveals no evidence of heart related illness. Tests revealed that you were positive for the influenza A virus and this is most likely was made to ill over the weekend causing her not to eat or drink as well as normal. Were found to be volume depleted on lab tests. I think with current blood pressure medications but your blood pressure is running too low a worse by low blood volume from not being able to eat or drink normally for the last few days. Blood pressure is low enough while in the hospital that I would suggest discontinuing the Toprol at this time just continue with the lisinopril once daily for blood pressure control. Lab tests revealed no abnormalities relating to the heart or kidneys. ECG was normal chest x-ray was also normal with no signs of pneumonia. Treatment is plenty of fluids today such as Gatorade /Powerade and all other juices would be okay as well. No excess coffee or tea as these cause to cause dehydration. Off work until Friday this week due to influenza A infection. Are considered contagious for one week from the time he developed symptoms area suggest follow-up with your personal care provider in 2 weeks time for recheck of your blood pressure to see whether or not you need to continue with Toprol. Checking her blood pressure outside of the clinic in running down the numbers at the local pharmacies or [employer] would be useful to establish that your blood pressure is actually low outside of the clinic in the do not need Toprol at this time. A 12 pound weight loss over the last year may also have reduced her need for blood pressure medications at this time. Of course follow-up if you have any further similar events. - My Orders Last 24 Hours: My Active Orders 07/21/18 08:45 EKG Documentation Completion [RC] STAT Dextrose 5%-0.9% NaCl [Dextrose 5%-Normal Saline] 1,000 ml IV ASDIRECTED - Assessment/Plan Last 24 Hours: My Active Orders 07/21/18 08:45 EKG Documentation Completion [RC] STAT Dextrose 5%-0.9% NaCl [Dextrose 5%-Normal Saline] 1,000 ml IV ASDIRECTED
--- NOTE | 2018-07-21 10:02 | CR ---
Chest: Portable view of the chest was obtained. Comparison: Prior chest x-ray of 09/30/17. Heart size is normal. Tortuous thoracic aorta is seen. Nodule is noted within the right upper lung which appears stable. Lungs show no acute parenchymal change. Bony structures are osteopenic. Impression: 1. Nothing acute is seen on portable chest x-ray. Diagnostic code #2
== END 2018-07-21 12:45 | disposition home or self-care (01) ==
LOC: JD.ED 07:59
DX: I95.1 Orthostatic hypotension (principal); S01.01XA Laceration without foreign body of scalp, initial encounter; J10.1 Influenza due to other identified influenza virus with other respiratory manifestations; E86.9 Volume depletion, unspecified; I10 Essential (primary) hypertension; F17.210 Nicotine dependence, cigarettes, uncomplicated; Z90.49 Acquired absence of other specified parts of digestive tract; Z90.710 Acquired absence of both cervix and uterus; Z79.899 Other long term (current) drug therapy; Z88.8 Allergy status to other drugs, medicaments and biological substances; W19.XXXA Unspecified fall, initial encounter; Y92.002 Bathroom of unspecified non-institutional (private) residence as the place of occurrence of the external cause
CPT/HCPCS: 12001; 36415; 71045; 80053; 83735; 83880; 84484; 85007; 85027; 86140; 87804; 93005; 96360; 99284; J2001; J7042; 12011; 99285